=== PATIENT | female | born 1960 | race Caucasian/White ===

== ENCOUNTER 2020-08-26 08:13 | Emergency (ER) | payer MEDICAID ==
[~2020-08-26] VITALS: Ht 167.6 cm; Wt 68.0 kg
[2020-08-26 08:22] VITALS: Ht 167.6 cm; Wt 68.0 kg
[2020-08-26 09:36] LABS: ALKALINE PHOSPHATASE 104 U/L (46-116); ALT/SGPT 32 U/L (14-59); AST/SGOT 30 U/L (15-37); BILIRUBIN TOTAL 0.3 mg/dL (0.20-1.00); CALCIUM 8.8 mg/dL (8.5-10.1); CARBON DIOXIDE 28.9 mmol/L (21-32); CHLORIDE SERUM 99 mmol/L (98-107); CREATININE SERUM 0.8 mg/dL (0.6-1.0); GFR1 > 60 mL/min; GLUCOSE SERUM 244 mg/dL (74-106); POTASSIUM SERUM 3.6 mmol/L (3.5-5.1); SODIUM SERUM 136 mmol/L (136-145); TOTAL PROTEIN, SERUM 7.4 g/dL (6.4-8.2)
[2020-08-26 09:41] LABS: ALBUMIN 3.2 g/dL (3.4-5.0)
[2020-08-26 10:06] LABS: BASOPHIL % 0.2 % (0-2); PLATELET COUNT 155 x10^3mcL (130-400)
[2020-08-26 10:54] LABS: RED CELL DISTRIBUTION WIDTH 17.3 % (11.5-14.5)
[2020-08-26 11:52] VITALS: BP 109/67
[2020-08-26 13:53] LABS: rbc morphology (normal/abnorm) NORMAL (NORMAL)
== END 2020-08-26 11:53 | disposition home or self-care (01) ==
LOC: ED 08:13
PROVIDERS: Student in an Organized Health Care Education/Training Program
DX: R53.1 Weakness (principal); E03.9 Hypothyroidism, unspecified; E11.9 Type 2 diabetes mellitus without complications; Z77.098 Contact with and (suspected) exposure to other hazardous, chiefly nonmedicinal, chemicals; Z88.5 Allergy status to narcotic agent
CPT/HCPCS: U0003